=== PATIENT | female | born 1940 | race Native Hawaiian/Other Pacific Islander ===

== ENCOUNTER 2018-07-24 11:51 | Emergency (ER) | payer MEDICARE, MEDICAID ==
[2018-07-24 12:01] VITALS: BMI 21.7
[2018-07-24 13:48] LABS: BASO % 0.4 % (0.0-2.0); EOS # 0.1 K/uL (0.0-0.7); HEMOGLOBIN 11.6 g/dL (12.0-16.0); LYMPH # 1.6 K/uL (1.0-4.3); LYMPH % 21.2 % (20.0-40.0); MEAN CELL VOLUME 96.1 fl (81.0-99.0); MEAN CORPUSCULAR HEMOGLOBIN 30.5 pg (27.0-31.0); MEAN CORPUSCULAR HGB CONC 31.7 g/dL (33.0-37.0); MEAN PLATELET VOLUME 10.6 fl (7.2-11.7); MONO # 0.3 K/uL (0.0-0.8); MONO % 4.1 % (0.0-10.0); NEUT # 5.7 K/uL (1.8-7.0); NEUT % 73.3 % (50.0-75.0); RBC 3.81 Mil/uL (3.80-5.20); RED CELL DISTRIBUTION WIDTH 13.2 % (11.5-14.5); WHITE BLOOD COUNT 7.8 K/uL (4.8-10.8)
[2018-07-24 14:01] LABS: BLOOD UREA NITROGEN 12 mg/dl (7-17); CALCIUM 8.6 mg/dL (8.4-10.2); GFR NON-AFRICAN AMERICAN > 60
--- NOTE | 2018-07-24 14:23 | CT ---
Date of service: 07/24/2018 PROCEDURE: CT HEAD WITHOUT CONTRAST. HISTORY: headache COMPARISON: None available. TECHNIQUE: Axial computed tomography images were obtained through the head/brain without intravenous contrast. Radiation dose: Total exam DLP = 805.88 mGy-cm. This CT exam was performed using one or more of the following dose reduction techniques: Automated exposure control, adjustment of the mA and/or kV according to patient size, and/or use of iterative reconstruction technique. FINDINGS: HEMORRHAGE: No intracranial hemorrhage. BRAIN: The tyler-white matter differentiation is well preserved. There is no mass effect or definitive edema pattern appreciated including the cortex. There is proportional expansion of the ventriculosulcal and cisternal spaces however in a pattern most compatible with diffuse cerebral atrophy. No suspicious extra-axial fluid collection is identified in the midline brain anatomy appears grossly nonfocal as imaged. VENTRICLES: Unremarkable. No hydrocephalus. CALVARIUM: Unremarkable. PARANASAL SINUSES: Unremarkable as visualized. No significant inflammatory changes. MASTOID AIR CELLS: Unremarkable as visualized. No inflammatory changes. OTHER FINDINGS: None. IMPRESSION: Nonacute unenhanced CT of the Head. Limited diffuse cerebral atrophy is appreciated, normal for the patient's stated age.
--- NOTE | 2018-07-24 14:33 | ED PDOC ---
Syncope/Near Syncope/Dizziness Time Seen by Provider: 07/24/18 12:28 Chief Complaint (Nursing): Dizziness/Lightheaded Chief Complaint (Provider): Dizziness/Lightheaded History Per: Patient History/Exam Limitations: no limitations Onset/Duration Of Symptoms: Days (x1 week) Current Symptoms Are (Timing): Still Present Additional Complaint(s): Angie Sorensen is a 77 year old female with a past medical history of HTN and hypercholesterolemia, who presents to the emergency department complaining of chest and head pressure, onset x1 week. Patient states that at times she gets dizzy but it is not constant. She states her pain is a zero and is only complaining of pressure in the chest and head. Patient denies any syncope, weakness, numbness or leg swelling. She also noticed her blood pressure has been high recently despite her taking her medications. PMD: Sea Khan Past Medical History Reviewed: Historical Data, Nursing Documentation, Vital Signs Vital Signs: Last Vital Signs Temp 99 F 07/24/18 11:59 Pulse 65 07/24/18 11:59 Resp 18 07/24/18 11:59 BP 185/70 H 07/24/18 11:59 Pulse Ox 99 07/24/18 11:59 - Medical History PMH: HTN, Hypercholesterolemia - Surgical History Surgical History: No Surg Hx - Family History Family History: States: Unknown Family Hx - Allergies Allergies/Adverse Reactions: Allergies Allergy/AdvReac Type Severity Reaction Status Date / Time No Known Allergies Allergy Verified 07/24/18 12:06 Review of Systems ROS Statement: Except As Marked, All Systems Reviewed And Found Negative Cardiovascular: Positive for: Other (chest pressure and head pressure) Musculoskeletal: Negative for: Other (leg swelling) Neurological: Positive for: Dizziness, Other (head pressure; (-) syncope). Negative for: Weakness, Numbness Physical Exam - Reviewed Nursing Documentation Reviewed: Yes Vital Signs Reviewed: Yes - Physical Exam Appears: Positive for: Non-toxic, No Acute Distress Head Exam: Positive for: ATRAUMATIC, NORMOCEPHALIC Skin: Positive for: Normal Color, Warm, Dry Eye Exam: Positive for: Normal appearance, EOMI, PERRL Neck: Positive for: Normal, Painless ROM, Supple Cardiovascular/Chest: Positive for: Regular Rate, Rhythm. Negative for: Murmur Respiratory: Positive for: Normal Breath Sounds. Negative for: Respiratory Distress Gastrointestinal/Abdominal: Positive for: Normal Exam, Soft. Negative for: Tenderness Back: Positive for: Normal Inspection. Negative for: L CVA Tenderness, R CVA Tenderness, Vertebral Tenderness Extremity: Positive for: Normal ROM. Negative for: Pedal Edema, Deformity Neurologic/Psych: Positive for: Alert, Oriented (x3). Negative for: Motor/Sensory Deficits - Laboratory Results Result Diagrams: 07/24/18 13:40 07/24/18 13:40 - ECG O2 Sat by Pulse Oximetry: 99 (RA) Pulse Ox Interpretation: Normal - Progress Re-evaluation Time: 15:00 Condition: Re-examined, Improved Medical Decision Making Medical Decision Making: Initial Time: 12:45 Initial Impression: Headache, chest pain, HTN Differential diagnosis includes but not limited to uncontrolled HTN, less likely acute coronary syndrome and less likely presentation of CVA Plan: --EKG --Chest X-ray --ED urine dipstick --Head CT without contrast --BMP --Troponin I --CBC with differential 14:[address] FINDINGS: HEMORRHAGE: No intracranial hemorrhage. BRAIN: The tyler-white matter differentiation is well preserved. There is no mass effect or definitive edema pattern appreciated including the cortex. There is proportional expansion of the ventriculosulcal and cisternal spaces however in a pattern most compatible with diffuse cerebral atrophy. No suspicious extra-axial fluid collection is identified in the midline brain anatomy appears grossly nonfocal as imaged. VENTRICLES: Unremarkable. No hydrocephalus. CALVARIUM: Unremarkable. PARANASAL SINUSES: Unremarkable as visualized. No significant inflammatory changes. MASTOID AIR CELLS: Unremarkable as visualized. No inflammatory changes. OTHER FINDINGS: None. IMPRESSION: Nonacute unenhanced CT of the Head. Limited diffuse cerebral atrophy is a ppreciated, normal for the patient's stated age. Scribe Attestation: Documented by John Reyes, acting as a scribe for Raulito Cabrera MD. Provider Scribe Attestation: All medical record entries made by the Scribe were at my direction and personally dictated by me. I have reviewed the chart and agree that the record accurately reflects my personal performance of the history, physical exam, medical decision making, and the department course for this patient. I have also personally directed, reviewed, and agree with the discharge instructions and disposition. Disposition - Clinical Impression Clinical Impression: Dizziness, Headache, Hypertension - Patient ED Disposition Is Patient to be Admitted: No Doctor Will See Patient In The: Office Counseled Patient/Family Regarding: Studies Performed, Diagnosis, Need For Followup - Disposition Referrals: Sea Khan MD [Primary Care Provider] - Disposition: Routine/Home Disposition Time: 15:15 Condition: GOOD Additional Instructions: NAGIE SORENSEN, thank you for letting us take care of you today. Your provider was Raulito Cabrera MD and you were treated for DIZZINESS. The emergency medical care you received today was directed at your acute symptoms. If you were prescribed any medication, please fill it and take as directed. It may take several days for your symptoms to resolve. Return to the Emergency Department if your symptoms worsen, do not improve, or if you have any other problems. Please contact your doctor or call one of the physicians/clinics you have been referred to that are listed on the Patient Visit Information form that is included in your discharge packet. Bring any paperwork you were given at discharge with you along with any medications you are taking to your follow up visit. Our treatment cannot replace ongoing medical care by a primary care provider outside of the emergency department. Thank you for allowing the [facility] [employer] team to be part of your care today. If you had an X-Ray or CT scan: A Radiologist will review the ED reading if any change in treatment is needed we will contact you. If you had a blood, urine, or wound culture: It will take several days for the results, if any change in treatment is needed we will contact you. If you had an STI test: It will take 48 hours for the results. Please call after 1 week if you have not heard back. Instructions: High Blood Pressure in Adults
--- NOTE | 2018-07-24 14:49 | RAD ---
Date of service: 07/24/2018 HISTORY: dyspnea COMPARISON: No prior. FINDINGS: LUNGS: Volume loss right upper lobe with scarring. Hilar retraction identified. PLEURA: No significant pleural effusion identified, no pneumothorax apparent. CARDIOVASCULAR: Atherosclerotic calcifications identified primarily aortic arch. No radiographic findings to suggest acute or significant cardiovascular disease. OSSEOUS STRUCTURES: No significant abnormalities. VISUALIZED UPPER ABDOMEN: Normal. OTHER FINDINGS: None. IMPRESSION: Volume loss, scarring right upper lobe. Elevation right hemidiaphragm and right hilum suggests chronic process likely scarring.
--- NOTE | 2018-07-24 16:07 | CARD ---
APPROVED REPORT Date of service: 07/24/2018 EKG Measurement Heart [id number] <Conclusion> Normal sinus rhythm Normal ECG
[2018-07-25 00:36] VITALS: BP 132/74; PULSE 82; RESP 19; TEMP 98.6
[2018-07-25 21:10] VITALS: O2SAT 99
== END 2018-07-24 15:32 | disposition home or self-care (01) ==
LOC: SUPCPDRO 11:51 → H.ER 11:51
DX: R42 Dizziness and giddiness (principal); R51 Headache; I10 Essential (primary) hypertension

== ENCOUNTER 2018-12-01 21:21 | Observation (INO) | payer MEDICARE ==
[2018-12-01 21:22] VITALS: BMI 21.7
[2018-12-01 22:48] LABS: BASO % 0.4 % (0.0-2.0); EOS % 0.5 % (0.0-4.0); HEMOGLOBIN 11.2 g/dL (12.0-16.0); LYMPH # 2.1 K/uL (1.0-4.3); LYMPH % 21.5 % (20.0-40.0); MEAN CELL VOLUME 95.9 fl (81.0-99.0); MEAN CORPUSCULAR HEMOGLOBIN 32.7 pg (27.0-31.0); MEAN CORPUSCULAR HGB CONC 34.1 g/dL (33.0-37.0); MEAN PLATELET VOLUME 9.6 fl (7.2-11.7); MONO # 0.8 K/uL (0.0-0.8); MONO % 7.8 % (0.0-10.0); NEUT % 69.8 % (50.0-75.0); NRBC % 0.1 % (0.0-0.0); RBC 3.41 Mil/uL (3.80-5.20); RED CELL DISTRIBUTION WIDTH 12.4 % (11.5-14.5)
[2018-12-01 22:56] LABS: PROTHROMBIN TIME 11.5 Seconds (9.8-13.1)
[2018-12-01 22:58] LABS: BLOOD UREA NITROGEN 13 mg/dl (7-17); CALCIUM 8.8 mg/dL (8.4-10.2); GFR NON-AFRICAN AMERICAN > 60; PARTIAL THROMBOPLASTIN TIME 28.1 Seconds (25.6-37.1)
--- NOTE | 2018-12-01 23:25 | ED PDOC ---
HPI: Headache Time Seen by Provider: 12/01/18 21:35 Chief Complaint (Nursing): Headache History Per: Patient History/Exam Limitations: no limitations Onset/Duration Of Symptoms: Hrs Current Symptoms Are (Timing): Still Present Additional Complaint(s): 77 year old F with history of HTN, HLD presenting with headache. States that at 6PM she took her Micardis 80mg and Hydralazine 50mg at the same time and afterwards felt lightheaded but mostly felt a throbbing pressure like headache in the back of her head radiating into the neck, states that she attributed this to elevated blood pressure at home. Patient states that she took APAP with some relief, states she does not have dizziness or lightheadedness currently, nor does she have chest pain, shortness of breath, fevers, focal weakness. Daughter states that she has been in touch with Dr. Khan and thinks the medication needs to be adjusted. States she had similar symptoms last week and had a negative CT and negative bloodwork and is due for MRI on Tuesday. PMD: Dr. Khan/Kameron Past Medical History Reviewed: Historical Data, Nursing Documentation, Vital Signs Vital Signs: Last Vital Signs Temp 98.2 F 12/01/18 22:01 Pulse 64 12/01/18 22:01 Resp 18 12/01/18 22:01 BP 170/82 H 12/01/18 22:01 Pulse Ox 99 12/01/18 22:01 - Medical History PMH: HTN, Hypercholesterolemia - Family History Family History: States: Unknown Family Hx - Home Medications Home Medications: Ambulatory Orders Medication Instructions Recorded Aspirin [Ecotrin] 81 mg PO HS 11/20/18 Metoprolol Succinate XL [Toprol XL] 100 mg PO DAILY 11/20/18 Simvastatin [Zocor] 40 mg PO HS 11/20/18 Telmisartan [Micardis] 80 mg PO DAILY 11/20/18 hydrALAZINE [Apresoline] 50 mg PO Q8 #90 tab 11/21/18 - Allergies Allergies/Adverse Reactions: Allergies Allergy/AdvReac Type Severity Reaction Status Date / Time No Known Allergies Allergy Verified 07/24/18 12:06 Review of Systems ROS Statement: Except As Marked, All Systems Reviewed And Found Negative Neurological: Positive for: Headache. Negative for: Weakness, Numbness, Incoordination, Change in Speech Physical Exam - Reviewed Nursing Documentation Reviewed: Yes Vital Signs Reviewed: Yes - Physical Exam Appears: Positive for: Well, Non-toxic, No Acute Distress Head Exam: Positive for: ATRAUMATIC, NORMAL INSPECTION, NORMOCEPHALIC Skin: Positive for: Normal Color, Warm, DRY Eye Exam: Positive for: EOMI, Normal appearance, PERRL ENT: Positive for: Normal ENT Inspection Neck: Positive for: Normal, Painless ROM Cardiovascular/Chest: Positive for: Regular Rate, Rhythm Respiratory: Positive for: CNT, Normal Breath Sounds Gastrointestinal/Abdominal: Positive for: Normal Exam, Soft Back: Positive for: Normal Inspection Extremity: Positive for: Normal ROM Neurological/Psych: Positive for: Awake, Alert, Normal Tone, Symmetric/Intact Strength, Gait (Normal), 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 Negative for: Motor/Sensory Deficits - Laboratory Results Result Diagrams: 12/01/18 22:45 12/01/18 22:45 Lab Results: PT 11.5 Seconds (9.8-13.1) 12/01/18 22:45 INR 1.0 12/01/18 22:45 APTT 28.1 Seconds (25.6-37.1) 12/01/18 22:45 Troponin I < 0.0120 ng/mL (0.00-0.120) 12/01/18 22:45 - ECG O2 Sat by Pulse Oximetry: 99 Pulse Ox Interpretation: Normal Medical Decision Making Medical Decision Makin77 year old presenting with headache and HTN and headache --Patient well appearing, no distress, not concerned for SAH/meningitis/acute intracranial patholgy --Patient had symptoms like this last week and had negative workup at that time --Dr. Khan recommends increasing Hydralazine to 75mg --Will check labs, give NSAID and re-eval 0000 --Patient has hypochloremic hyponatremia on labs --Will hydrate with sodium chloride --Dr. Khan aware, will place in OBS MS Disposition - Clinical Impression Clinical Impression: Hyponatremia - Patient ED Disposition Is Patient to be Admitted: Yes Discussed With : Sea Khan - Disposition Disposition Time: 00:00 Condition: FAIR
[2018-12-01] MEDS ORDERED: Sodium Chloride 0.9% 1,000 ML IV STA (23:31)
--- NOTE | 2018-12-02 13:41 | CP.PCM.HP ---
History of Present Illness - History of Present Illness History of Present Illness: This is a 77 y/o female admitted for dizziness and headaches. Noted to have elevated BP and sodium of 123. Patient has a hx of HTn and hyperlipidemia and lately she has been noted to have fluctuations of BP. Her Bp has been so labile and at times had caused her dizziness and headaches. She had recent hospitalizations for elevated Bp and severe headaches. She has been on telmisartan and metoprolol and hydralazine and has been compl iant with her medications. Since her last hospitalization 2 weeks ago she claims to have very strict no salt on her diet. She started having vague dizziness and headaches hence was advised Er eval where she was noted to have hyponatremia. Review of her previous labs showed normal sodium all the time. Present on Admission - Present on Admission Any Indicators Present on Admission: No History of DVT/PE: No History of Uncontrolled Diabetes: No Urinary Catheter: No Decubitus Ulcer Present: No Review of Systems - Constitutional Constitutional: Headache - Neurological Neurological: Dizziness Past Patient History - Infectious Disease Hx of Infectious Diseases: None - Past Medical History & Family History Past Medical History?: Yes - Past Social History Smoking Status: Never Smoked - CARDIAC Hx Hypercholesterolemia: Yes Hx Hypertension: Yes - PULMONARY Hx Respiratory Disorders: No - NEUROLOGICAL Hx Neurological Disorder: No - HEENT Hx HEENT Problems: No - RENAL Hx Chronic Kidney Disease: No - ENDOCRINE/METABOLIC Hx Endocrine Disorders: No - HEMATOLOGICAL/ONCOLOGICAL Hx Blood Disorders: No - INTEGUMENTARY Hx Dermatological Problems: No - MUSCULOSKELETAL/RHEUMATOLOGICAL Hx Musculoskeletal Disorders: No Hx Falls: No - GASTROINTESTINAL Hx Gastrointestinal Disorders: No - GENITOURINARY/GYNECOLOGICAL Hx Genitourinary Disorders: No - PSYCHIATRIC Hx Psychophysiologic Disorder: No Hx Substance Use: No - SURGICAL HISTORY Hx Surgeries: No - ANESTHESIA Hx Anesthesia: No Hx Anesthesia Reactions: No Meds Allergies/Adverse Reactions: Allergies Allergy/AdvReac Type Severity Reaction Status Date / Time No Known Allergies Allergy Verified 07/24/18 12:06 Physical Exam - Head Exam Head Exam: NORMAL INSPECTION - Eye Exam Eye Exam: Normal appearance - Respiratory Exam Respiratory Exam: Clear to Auscultation Bilateral - Cardiovascular Exam Cardiovascular Exam: REGULAR RHYTHM - GI/Abdominal Exam GI & Abdominal Exam: Normal Bowel Sounds - Neurological Exam Neurological exam: CN II-XII Intact - Psychiatric Exam Psychiatric exam: Normal Mood Results - Vital Signs Recent Vital Signs: Last Vital Signs Temp 98.6 F 12/02/18 08:26 Pulse 64 12/02/18 08:26 Resp 20 12/02/18 08:26 BP 155/70 H 12/02/18 08:26 Pulse Ox 98 12/02/18 08:26 - Labs Result Diagrams: 12/01/18 22:45 12/03/18 05:30 Labs: Laboratory Results - last 24 hr 12/01/18 12/01/18 12/01/18 22:45 22:45 22:45 WBC 10.0 D RBC 3.41 L Hgb 11.2 L Hct 32.7 L MCV 95.9 MCH 32.7 H MCHC 34.1 RDW 12.4 Plt Count 177 MPV 9.6 Neut % (Auto) 69.8 Lymph % (Auto) 21.5 [place] % (Auto) 7.8 Eos % (Auto) 0.5 Baso % (Auto) 0.4 Neut # (Auto) 7.0 Lymph # (Auto) 2.1 [place] # (Auto) 0.8 Eos # (Auto) 0.0 Baso # (Auto) 0.0 PT 11.5 INR 1.0 APTT 28.1 Sodium 123 L Potassium 3.8 Chloride 89 L Carbon Dioxide 22 Anion Gap 16 BUN 13 Creatinine 0.5 L Est GFR ( Amer) > 60 Est GFR (Non-Af Amer) > 60 Random Glucose 126 H Calcium 8.8 Troponin I < 0.0120 Assessment & Plan (1) Hyponatremia Status: Acute (2) Hypertension Status: Acute - Assessment and Plan (Free Text) Plan: will give fluid restriction and liberal salt diet for now Nacl fluid recheck sodium in am add amlodipine monitor BP
[2018-12-02] MEDS ORDERED: Metoprolol Succinate 100 mg XL Tab PO SCH (15:00)
[2018-12-02] MEDS: Patient's Own Med (Telmisartan [Micardis] 80 mg) PO SCH (17:06)
[2018-12-02] MEDS: Metoprolol Succinate 100 mg XL Tab PO SCH (17:07)
--- NOTE | 2018-12-02 18:57 | CARD ---
APPROVED REPORT Date of service: 12/01/2018 EKG Measurement Heart [id number] <Conclusion> Normal sinus rhythm Normal ECG
[2018-12-03 06:56] LABS: ALB/GLOB RATIO 1.1 (1.0-2.1); ALBUMIN 3.1 g/dL (3.5-5.0); ALT/SGPT 29 U/L (9-52); AST/SGOT 23 U/L (14-36); BLOOD UREA NITROGEN 9 mg/dl (7-17); CALCIUM 8.4 mg/dL (8.4-10.2); GFR NON-AFRICAN AMERICAN > 60
[2018-12-03] MEDS: Metoprolol Succinate 100 mg XL Tab PO SCH (09:58)
[2018-12-03] MEDS: Patient's Own Med (Telmisartan [Micardis] 80 mg) PO SCH (12:25)
--- NOTE | 2018-12-03 22:55 | CP.PCM.PN ---
Subjective - Date & Time of Evaluation Date of Evaluation: 12/03/18 Time of Evaluation: 16:20 - Subjective Subjective: Patient has less dizziness and headaches Sodium is 126 Has no chest pain or SOB. Objective - Vital Signs/Intake and Output Vital Signs (last 24 hours): Temp Pulse Resp BP Pulse Ox 98.5 F 57 L 18 145/62 95 12/03/18 17:00 12/03/18 17:11 12/03/18 17:00 12/03/18 17:11 12/03/18 17:00 - Medications Medications: Current Medications Amlodipine Besylate (Norvasc) 5 mg PO DAILY [facility] Last Admin: 12/03/18 09:58 Dose: Not Given Aspirin (Ecotrin) 81 mg PO DAILY [facility] Last Admin: 12/03/18 09:57 Dose: 81 mg Home Med (Simvastatin [Zocor]) 40 mg PO HS [facility] Last Admin: 12/03/18 21:57 Dose: 40 mg Home Med (Telmisartan [Micardis]) 80 mg PO DAILY@1200 [facility] Last Admin: 12/03/18 12:25 Dose: 80 mg Hydralazine HCl (Apresoline) 50 mg PO Q8 [facility] Last Admin: 12/03/18 17:11 Dose: 50 mg Metoprolol Succinate (Toprol Xl) 100 mg PO DAILY [facility] Last Admin: 12/03/18 09:58 Dose: Not Given - Labs Labs: 12/01/18 22:45 12/03/18 05:30 PT 11.5 Seconds (9.8-13.1) 12/01/18 22:45 INR 1.0 12/01/18 22:45 APTT 28.1 Seconds (25.6-37.1) 12/01/18 22:45 - Head Exam Head Exam: NORMAL INSPECTION - Eye Exam Eye Exam: Normal appearance - ENT Exam ENT Exam: Mucous Membranes Moist - Respiratory Exam Respiratory Exam: Clear to Ausculation Bilateral - Cardiovascular Exam Cardiovascular Exam: REGULAR RHYTHM - GI/Abdominal Exam GI & Abdominal Exam: Normal Bowel Sounds - Neurological Exam Neurological Exam: Awake, Oriented x3 Assessment and Plan (1) Hyponatremia Status: Acute (2) Hypertension Status: Acute - Assessment and Plan (Free Text) Plan: Cont meds fluid restriction repeat sodium BMP in am amlodipine
[2018-12-04 06:23] LABS: BLOOD UREA NITROGEN 10 mg/dl (7-17); CALCIUM 8.7 mg/dL (8.4-10.2); GFR NON-AFRICAN AMERICAN > 60
[2018-12-04 08:19] VITALS: RESP 20; TEMP 98.1; O2SAT 98
[2018-12-04] MEDS: Metoprolol Succinate 100 mg XL Tab PO SCH (08:29)
[2018-12-04] MEDS: Patient's Own Med (Telmisartan [Micardis] 80 mg) PO SCH (12:35)
[2018-12-04 12:36] VITALS: BP 115/57; PULSE 57
== END 2018-12-04 15:44 | disposition home or self-care (01) ==
LOC: H.ER 21:21 → H.ERHOLD 12-02 00:02 → H.MEDSURG1 12-02 03:19
PROVIDERS: ADMIT Family Medicine; ATTEND Family Medicine
DX: E87.1 Hypo-osmolality and hyponatremia (principal); I10 Essential (primary) hypertension; E78.00 Pure hypercholesterolemia, unspecified; E78.5 Hyperlipidemia, unspecified; Z79.82 Long term (current) use of aspirin; E87.8 Other disorders of electrolyte and fluid balance, not elsewhere classified
CPT/HCPCS: 36415; 80048; 80053; 82948; 84484; 85025; 85610; 85730; 93005; 99285; G0378; J7030

== ENCOUNTER 2019-01-17 10:03 | Observation (INO) | payer MEDICARE ==
[2019-01-17 10:08] VITALS: BMI 22.4
[2019-01-17 11:03] LABS: BASO # 0.1 K/uL (0.0-0.2); BASO % 0.9 % (0.0-2.0); EOS % 0.2 % (0.0-4.0); HEMOGLOBIN 10.6 g/dL (12.0-16.0); LYMPH # 1.4 K/uL (1.0-4.3); LYMPH % 15.6 % (20.0-40.0); MEAN CELL VOLUME 96.7 fl (81.0-99.0); MEAN CORPUSCULAR HGB CONC 33.1 g/dL (33.0-37.0); MEAN PLATELET VOLUME 8.6 fl (7.2-11.7); MONO # 0.4 K/uL (0.0-0.8); MONO % 3.9 % (0.0-10.0); NEUT # 7.2 K/uL (1.8-7.0); NEUT % 79.4 % (50.0-75.0); RBC 3.32 Mil/uL (3.80-5.20); RED CELL DISTRIBUTION WIDTH 12.9 % (11.5-14.5); WHITE BLOOD COUNT 9.1 K/uL (4.8-10.8)
[2019-01-17 11:14] LABS: ALB/GLOB RATIO 1.4 (1.0-2.1); ALBUMIN 4.2 g/dL (3.5-5.0); ALT/SGPT 53 U/L (9-52); AST/SGOT 47 U/L (14-36); BLOOD UREA NITROGEN 12 mg/dl (7-17); CALCIUM 8.5 mg/dL (8.4-10.2); GFR NON-AFRICAN AMERICAN > 60
--- NOTE | 2019-01-17 11:36 | ED PDOC ---
Syncope/Near Syncope/Dizziness Time Seen by Provider: 01/17/19 10:20 Chief Complaint (Nursing): Dizziness/Lightheaded Chief Complaint (Provider): Dizziness/Lightheaded History Per: Patient History/Exam Limitations: no limitations Additional Complaint(s): 78 y/o female presents to the ED referral by PMD due to dizziness associated with nausea and vomiting. Patient was hospitalized in November for the same symptoms and was found to be hyponatremia. she states the dizziness was worse yesterday after starting new blood pressure medication. Froy reports symtpoms are worse when she moves her head from side to side. PMD requested MRI and SCT was done in november which was negative. PMD: none provided Past Medical History Reviewed: Historical Data, Nursing Documentation, Vital Signs Vital Signs: Last Vital Signs Temp 98.6 F 01/17/19 10:07 Pulse 67 01/17/19 10:07 Resp 18 01/17/19 10:07 BP 149/71 01/17/19 10:07 Pulse Ox 99 01/17/19 10:07 Primary Care Provider: Sea Khan - Medical History PMH: HTN, Hypercholesterolemia Denies: Chronic Kidney Disease - Family History Family History: States: Unknown Family Hx - Immunization History Hx Tetanus Toxoid Vaccination: No Hx Influenza Vaccination: Yes Hx Pneumococcal Vaccination: No - Home Medications Home Medications: Ambulatory Orders Medication Instructions Recorded Aspirin [Ecotrin] 81 mg PO HS 11/20/18 Metoprolol Succinate XL [Toprol XL] 100 mg PO DAILY 11/20/18 Simvastatin [Zocor] 40 mg PO HS 11/20/18 Telmisartan [Micardis] 80 mg PO DAILY 11/20/18 hydrALAZINE [Apresoline] 50 mg PO Q8 #90 tab 11/21/18 amLODIPine [Norvasc] 5 mg PO DAILY #30 tab 12/04/18 - Allergies Allergies/Adverse Reactions: Allergies Allergy/AdvReac Type Severity Reaction Status Date / Time No Known Allergies Allergy Verified 07/24/18 12:06 Review of Systems ROS Statement: Except As Marked, All Systems Reviewed And Found Negative Gastrointestinal: Positive for: Nausea, Vomiting Neurological: Positive for: Dizziness Physical Exam - Reviewed Nursing Documentation Reviewed: Yes Vital Signs Reviewed: Yes - Physical Exam Appears: Positive for: Well, Non-toxic, No Acute Distress Head Exam: Positive for: ATRAUMATIC, NORMAL INSPECTION, NORMOCEPHALIC Skin: Positive for: Normal Color, Warm, Dry Eye Exam: Positive for: EOMI, Normal appearance, PERRL ENT: Positive for: Normal ENT Inspection Neck: Positive for: Normal, Painless ROM, Supple Cardiovascular/Chest: Positive for: Regular Rate, Rhythm. Negative for: Murmur Respiratory: Positive for: Normal Breath Sounds. Negative for: Wheezing Gastrointestinal/Abdominal: Positive for: Normal Exam, Soft. Negative for: Tenderness Back: Positive for: Normal Inspection. Negative for: L CVA Tenderness, R CVA Tenderness, Vertebral Tenderness Extremity: Positive for: Normal ROM Neurological/Psych: Positive for: Awake, Alert, Normal Tone, Oriented (x3). Negative for: Motor/Sensory Deficits - Laboratory Results Result Diagrams: 01/17/19 10:42 01/17/19 10:50 Lab Results: Total Bilirubin 0.5 mg/dl (0.2-1.3) 01/17/19 10:50 AST 47 U/L (14-36) H D 01/17/19 10:50 ALT 53 U/L (9-52) H D 01/17/19 10:50 Alkaline Phosphatase 49 U/L (38-126) 01/17/19 10:50 Total Protein 7.3 G/DL (6.3-8.2) 01/17/19 10:50 Albumin 4.2 g/dL (3.5-5.0) 01/17/19 10:50 Globulin 3.1 gm/dL (2.2-3.9) 01/17/19 10:50 Albumin/Globulin Ratio 1.4 (1.0-2.1) 01/17/19 10:50 - ECG O2 Sat by Pulse Oximetry: 99 Medical Decision Making Medical Decision Making: Time:1038 Impression: Plan: -EKG -CMP -CBC -MRI -Antivert -Zofran inj Scribe Attestation: Documented by Kayley Oro, acting as a scribe for Valdo Chaudhari. Provider Scribe Attestation: All medical record entries made by the Scribe were at my direction and personally dictated by me. I have reviewed the chart and agree that the record accurately reflects my personal performance of the history, physical exam, medical decision making, and the department course for this patient. I have also personally directed, reviewed, and agree with the discharge instructions and disposition. Disposition - Clinical Impression Clinical Impression: Dizziness of unknown cause, Severe dizziness - Patient ED Disposition Is Patient to be Admitted: Yes - Disposition Disposition Time: 14:54 Condition: FAIR Forms: [employer] (Hungarian) - Pt Status Changed To: Hospital Disposition Of: Observation - POA Present On Arrival: None
--- NOTE | 2019-01-17 14:41 | MRI ---
Date of service: 01/17/2019 PROCEDURE: Magnetic Resonance Angiography Brain HISTORY: Dizziness COMPARISON: None available. TECHNIQUE: 3D time of flight MR angiography of the intracranial arteries was performed. Rotating maximum intensity projection images were generated. FINDINGS: INTERNAL CAROTID ARTERIES: Normal flow related signal. The skull base, petrous, cavernous and supraclinoid segments are bilaterally widely patient. ANTERIOR CEREBRAL ARTERIES: Normal flow related signal. A1 and A2 segments are widely patent. Smaller distal branches unremarkable, as visualized. MIDDLE CEREBRAL ARTERIES: Normal flow related signal. M1 and M2 segments are widely patent. Perisylvian branches grossly symmetric. POSTERIOR CIRCULATION: Basilar Artery: Normal flow related signal. Normal in caliber and widely patent. Distal Vertebral Arteries: Normal flow related signal. Widely patent. Posterior Cerebral Arteries: Normal flow related signal. Widely patent. Posterior Inferior Cerebellar Arteries: Normal flow related signal. Widely patent. ANEURYSM/ VASCULAR MALFORMATIONS: None. OTHER FINDINGS: None. IMPRESSION: Normal noncontrast MR angiography of the brain.
--- NOTE | 2019-01-17 14:47 | MRI ---
Date of service: 01/17/2019 PROCEDURE: MRI BRAIN WITHOUT CONTRAST HISTORY: Dizziness COMPARISON: CT head without contrast from 11/20/2018 TECHNIQUE: Multiplanar, multisequence MR images of the brain were obtained without intravenous contrast enhancement. FINDINGS: HEMORRHAGE: None DWI: No evidence of an acute or early subacute infarction. BRAIN PARENCHYMA: There are mild chronic microangiopathic changes. There is no mass, mass effect or abnormal extra-axial fluid collection. There is no territorial infarction. There is an empty sella, otherwise the midline sagittal structures are normal. VENTRICLES: There is mild age-related global parenchymal volume loss and proportionate enlargement of the ventricles and cortical sulci. CRANIUM: There is normal bone marrow signal pattern. 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 PARANASAL SINUSES/MASTOIDS: Predominantly clear. VASCULAR SYSTEM: There are normal signal voids in the larger intracranial arteries. OTHER FINDINGS: None. IMPRESSION: 1. No acute intracranial abnormality. 2. Mild chronic microangiopathic changes and mild age-related global parenchymal volume loss.
--- NOTE | 2019-01-17 15:54 | CARD ---
APPROVED REPORT Date of service: 01/17/2019 EKG Measurement Heart [id number] <Conclusion> Normal sinus rhythm Normal ECG
[2019-01-18] MEDS ORDERED: diltiaZEM 120 mg/24 Hours CD Cap PO SCH (09:00)
[2019-01-18] MEDS ORDERED: Metoprolol Succinate 100 mg XL Tab PO SCH (09:00)
--- NOTE | 2019-01-18 10:39 | CP.PCM.HP ---
History of Present Illness - History of Present Illness History of Present Illness: 78 yo female w/ PMHx of HTN and hyperlipidemia presented to ED with headaches associated with dizziness and vomiting. It has been noted to have fluctuations of BP. Her Bp has been so labile and at times had caused her dizziness and headaches. For which she has required admissions to the hospital. She had recent hospitalizations for elevated Bp and severe headaches. She has been on telmisartan and metoprolol and hydralazine and has been compliant with her medications. Patient recently switched from amlodipine to cardizem due to leg edema. Patient has been compliant with outpatient followup Patient seen and examined at bedside. No complaints offered at this time however BP has been low-normal without any BP meds when usually patient requires 3-5 medications to control bp. Denies chest pain, dizziness, headaches, palpitations . Meds: as per chart allergies: as per chart fam hx: non contributory Present on Admission - Present on Admission Any Indicators Present on Admission: No Review of Systems - Review of Systems All systems: reviewed and no additional remarkable complaints except (mentinoed above) Past Patient History - Infectious Disease Hx of Infectious Diseases: None - Past Medical History & Family History Past Medical History?: Yes - Past Social History Smoking Status: Never Smoked - CARDIAC Hx Hypercholesterolemia: Yes Hx Hypertension: Yes - PULMONARY Hx Respiratory Disorders: No - NEUROLOGICAL Hx Neurological Disorder: No - HEENT Hx HEENT Problems: No - RENAL Hx Chronic Kidney Disease: No - ENDOCRINE/METABOLIC Hx Endocrine Disorders: No - HEMATOLOGICAL/ONCOLOGICAL Hx Blood Disorders: No - INTEGUMENTARY Hx Dermatological Problems: No - MUSCULOSKELETAL/RHEUMATOLOGICAL Hx Musculoskeletal Disorders: No Hx Falls: No - GASTROINTESTINAL Hx Gastrointestinal Disorders: No - GENITOURINARY/GYNECOLOGICAL Hx Genitourinary Disorders: No - PSYCHIATRIC Hx Psychophysiologic Disorder: No Hx Substance Use: No - SURGICAL HISTORY Hx Surgeries: No Hx Tubal Ligation: Yes - ANESTHESIA Hx Anesthesia: No Hx Anesthesia Reactions: No Hx Malignant Hyperthermia: No Has any member of the family had a problem w/ anesthesia?: No Meds Allergies/Adverse Reactions: Allergies Allergy/AdvReac Type Severity Reaction Status Date / Time No Known Allergies Allergy Verified 07/24/18 12:06 Physical Exam - Constitutional Appears: Non-toxic, No Acute Distress - Head Exam Head Exam: NORMAL INSPECTION - Eye Exam Eye Exam: Normal appearance - Neck Exam Neck exam: Positive for: Normal Inspection - Respiratory Exam Respiratory Exam: NORMAL BREATHING PATTERN - Cardiovascular Exam Cardiovascular Exam: +S1, +S2 - GI/Abdominal Exam GI & Abdominal Exam: Normal Bowel Sounds, Soft - Extremities Exam Extremities exam: Positive for: normal inspection - Neurological Exam Neurological exam: Alert, Oriented x3 - Psychiatric Exam Psychiatric exam: Normal Affect, Normal Mood - Skin Skin Exam: Normal Color, Warm Results - Vital Signs Recent Vital Signs: Last Vital Signs Temp 98.4 F 01/18/19 07:56 Pulse 63 01/18/19 07:56 Resp 20 01/18/19 07:56 BP 143/64 01/18/19 07:56 Pulse Ox 96 01/18/19 07:56 - Labs Result Diagrams: 01/17/19 10:42 01/17/19 10:50 Labs: Laboratory Results - last 24 hr 01/17/19 01/17/19 10:42 10:50 WBC 9.1 RBC 3.32 L Hgb 10.6 L Hct 32.1 L MCV 96.7 MCH 32.0 H MCHC 33.1 RDW 12.9 Plt Count 215 MPV 8.6 Neut % (Auto) 79.4 H Lymph % (Auto) 15.6 L [place] % (Auto) 3.9 Eos % (Auto) 0.2 Baso % (Auto) 0.9 Neut # (Auto) 7.2 H Lymph # (Auto) 1.4 [place] # (Auto) 0.4 Eos # (Auto) 0.0 Baso # (Auto) 0.1 Sodium 132 Potassium 3.5 L Chloride 96 L Carbon Dioxide 26 Anion Gap 14 BUN 12 Creatinine 0.5 L Est GFR ( Amer) > 60 Est GFR (Non-Af Amer) > 60 Random Glucose 151 H Calcium 8.5 Total Bilirubin 0.5 AST 47 H D ALT 53 H D Alkaline Phosphatase 49 Total Protein 7.3 Albumin 4.2 Globulin 3.1 Albumin/Globulin Ratio 1.4 Assessment & Plan (1) Labile hypertension Status: Acute (2) Dizziness Status: Acute (3) Headache Status: Acute - Assessment and Plan (Free Text) Plan: available diagnostic data reviewed monitor labs monitor vitals adjust meds as dictated by BP monitor on telemetry Cardioloy consult rest of plan as ordered
--- NOTE | 2019-01-18 18:07 | CARD ---
APPROVED REPORT Date of service: 01/18/2019 EXAM: Two-dimensional and M-mode echocardiogram with Doppler and color Doppler. Other Information Quality : GoodRhythm : NSR INDICATION Dizziness and Vertigo 2D DIMENSIONS IVSd0.71 (0.7-1.1cm)LVDd4.79 (3.9-5.9cm) LVOT Diameter2.02 (1.8-2.4cm)PWd0.77 (0.7-1.1cm) IVSs1.24 (0.8-1.2cm)LVDs2.82 (2.5-4.0cm) FS (%) 41.0 %PWs1.11 (0.8-1.2cm) M-Mode DIMENSIONS Left Atrium (MM)2.75 (2.5-4.0cm)IVSd0.93 (0.7-1.1cm) Aortic Root2.83 (2.2-3.7cm)LVDd5.25 (4.0-5.6cm) Aortic Cusp Exc.1.65 (1.5-2.0cm)PWd0.90 (0.7-1.1cm) IVSs1.29 cmFS (%) 38 % LVDs3.24 (2.0-3.8cm)PWs0.98 cm Aortic Valve AoV Peak Lybcgppv467.2cm/sAoV VTI27.3cmAO Peak GR.6mmHg LVOT Peak Hwxdymfi65.7cm/sLVOT VTI19.44cmAO Mean GR.3mmHg AKHIL (VMAX)1.92oo6ZIC (VTI)1.72cm2 Mitral Valve MV E Ttirexwo68.4cm/sMV DECEL [id number] A Eonjxaio41.3cm/s MV VLV05yeN/A ratio1.2MVA (PHT)4.36cm2 TDI E/Lateral E'0.0E/Medial E'0.0 Tricuspid Valve TR Peak Thauphxc436rv/sRAP PEVLQLGJ12hjKkPX Peak Gr.29mmHg [id number] LEFT VENTRICLE The left ventricle is normal size. There is normal left ventricular wall thickness. The left ventricular systolic function is normal. The estimated ejection fraction is 60-65% No regional wall motion abnormalities noted.. The left ventricular diastolic function assessment is incomplete, likely has Grade 2 dysfunction. No left ventricle thrombus noted on this study. There is no ventricular septal defect visualized. There is no left ventricular aneurysm. There is no mass noted in the left ventricle. RIGHT VENTRICLE The right ventricle is normal size. There is normal right ventricular wall thickness. The right ventricular systolic function is normal. ATRIA The left atrium size is normal. The right atrium size is normal. The interatrial septum is intact with no evidence for an atrial septal defect. AORTIC VALVE The aortic valve is normal in structure. Mild aortic regurgitation is present. There is no aortic valvular stenosis. There is no aortic valvular vegetation. MITRAL VALVE The mitral valve is normal in structure. There is no evidence of mitral valve prolapse. There is no mitral valve stenosis. There is mild mitral valve regurgitation noted. TRICUSPID VALVE The tricuspid valve is normal in structure. There is mild to moderate tricuspid valve regurgitation noted. RVSP is calculated at 38 mm Hg. There is no tricuspid valve prolapse or vegetation. There is no tricuspid valve stenosis. PULMONIC VALVE The pulmonary valve is normal in structure. There is no pulmonic valvular regurgitation. There is no pulmonic valvular stenosis. GREAT VESSELS The aortic root is normal in size. The ascending aorta is normal in size. The pulmonary artery is normal. The IVC is normal in size and collapses >50% with inspiration. PERICARDIAL EFFUSION There is no pericardial effusion. There is no pleural effusion. <Conclusion> The estimated ejection fraction is 60-65% The left ventricular diastolic function assessment is incomplete, likely has Grade 2 dysfunction. The left atrium size is normal. Mild aortic regurgitation is present. There is mild mitral valve regurgitation noted. There is mild to moderate tricuspid valve regurgitation noted. RVSP is calculated at 38 mm Hg.
[2019-01-19 05:21] VITALS: O2SAT 98
[2019-01-19 10:16] LABS: MEAN CELL VOLUME 96.2 fl (81.0-99.0); MEAN CORPUSCULAR HGB CONC 33.3 g/dL (33.0-37.0); RBC 3.44 Mil/uL (3.80-5.20); RED CELL DISTRIBUTION WIDTH 12.9 % (11.5-14.5); WHITE BLOOD COUNT 7.2 K/uL (4.8-10.8)
[2019-01-19 11:24] LABS: ALB/GLOB RATIO 1.3 (1.0-2.1); ALT/SGPT 49 U/L (9-52); AST/SGOT 37 U/L (14-36); BLOOD UREA NITROGEN 16 mg/dl (7-17); CALCIUM 8.6 mg/dL (8.4-10.2); GFR NON-AFRICAN AMERICAN > 60
[2019-01-19 16:38] VITALS: BP 136/71; PULSE 66; RESP 18; TEMP 98.5
--- NOTE | 2019-01-19 17:05 | CP.PCM.CON ---
History of Present Illness - History of Present Illness History of Present Illness: I was asked to evaluate patient by Dr Melo. Patient seen 01/19/19 1700 Patient is a 78 year old female iwth HTN, hypercholesterolemia who presents with dizziness. By report blood pressure has been difficult to control, and the p atient was recently started on cardizem. She developed dizziness and near syncope. The patient presented to [facility] for further management. Review of Systems - Constitutional Constitutional: absent: As Per HPI, Anorexia, Chills, Daytime Sleepiness, Excessive Sweating, Fatigue, Fever, Frequent Falls, Headache, Increased Appetite, Lethargy, Malaise, Night Sweats, Snoring, Sleep Apnea, Weight Gain, Weight Loss, Weakness, Other - EENT Eyes: absent: As Per HPI, Blind Spots, Blurred Vision, Change in Vision, Decreased Night Vision, Diplopia, Discharge, Dry Eye, Exophthalmos, Floaters, Irritation, Itchy Eyes, Loss of Peripheral Vision, Pain, Photophobia, Requires Corrective Lenses, Sees Flashes, Spots in Vision, Tunnel Vision, Other Visual Disturbances, Loss of Vision, Other Ears: absent: As Per HPI, Decreased Hearing, Ear Discharge, Ear Pain, Tinnitus, Abnormal Hearing, Disequilibrium, Dizziness, Other Nose/Mouth/Throat: absent: As Per HPI, Epistaxis, Nasal Congestion, Nasal Discharge, Nasal Obstruction, Nasal Trauma, Nose Pain, Post Nasal Drip, Sinus Pain, Sinus Pressure, Bleeding Gums, Change in Voice, Dental Pain, Dry Mouth, Dysphagia, Halitosis, Hoarsness, Lip Swelling, Mouth Lesions, Mouth Pain, Odynophagia, Sore Throat, Throat Swelling, Tongue Swelling, Facial Pain, Neck Pain, Neck Mass, Other - Cardiovascular Cardiovascular: absent: As Per HPI, Acrocyanosis, Chest Pain, Chest Pain at Rest, Chest Pain with Activity, Claudication, Diaphoresis, Dyspnea, Dyspnea on Exertion, Edema, Irregular Heart Rhythm, Pain Radiating to Arm/Neck/Jaw, Leg Edema, Leg Ulcers, Lightheadedness, Orthopnea, Palpitations, Paroxysmal Nocturnal Dyspnea, Pedal Edema, Radiating Pain, Rapid Heart Rate, Slow Heart Rate, Syncope, Other - Respiratory Respiratory: absent: As Per HPI, Cough, Dyspnea, Hemoptysis, Dyspnea on Exertion, Wheezing, Snoring, Stridor, Pain on Inspiration, Chest Congestion, Excessive Mucous Production, Change in Mucous Color, Pain with Coughing, Other - Gastrointestinal Gastrointestinal: absent: As Per HPI, Abdominal Pain, Belching, Bloating, Change in Bowel Habits, Change in Stool Character, Coffee Ground Emesis, Constipation, Cramping, Diarrhea, Dyspepsia, Dysphagia, Early Satiety, Excessive Flatus, Fecal Incontinence, Heartburn, Hematemesis, Hematochezia, Loose Stools, Melena, Nausea, Odynophagia, Temesmus, Vomiting, Other - Genitourinary Genitourinary: absent: As Per HPI, Change in Urinary Stream, Difficulty Urinating, Dysuria, Flank Pain, Hematuria, Pyuria, Nocturia, Urinary Incontinence, Urinary Frequency, Urinary Hesitance, Urinary Urgency, Voiding Freq/Small Amts, Freq UTI, Hx Renal/Bladder Calculi, Hx /Renal Surgery, Bladder Distension, Other - Musculoskeletal Musculoskeletal: absent: As Per HPI, Abnormal Gait, Arthralgias, Atrophy, Back Pain, Deformity, Joint Swelling, Limited Range of Motion, Loss of Height, Muscle Cramps, Muscle Weakness, Myalgias, Neck Pain, Numbness, Radiating Pain into Limb, Stiffness, Tingling, Other - Integumentary Integumentary: absent: As Per HPI, Acne, Alopecia, Bleeding Lesions, Change in Hair, Change in Nails, Change in Pigmentation, Changing Lesions, Dry Skin, Erythema, Furuncle, Hirsutism, Lesions, New Lesions, Non-Healing Lesions, Photosensitivity, Pruritus, Rash, Skin Pain, Skin Ulcer, Sores, Striae, Swelling, Unusual Bruising, Wounds, Jaundice, Other - Neurological Neurological: absent: As Per HPI, Abnormal Gait, Abnormal Hearing, Abnormal Movements, Abnormal Speech, Behavioral Changes, Burning Sensations, Confusion, Convulsions, Disequilibrium, Dizziness, Numbness, Focal Weakness, Frequent Falls, Headaches, Lack of Coordination, Loss of Vision, Memory Loss, Paresthesias, Radicular Pain, Restless Legs, Sensory Deficit, Syncope, Tingling, Tremor, Vertigo, Weakness, Other Visual Disturbances, Other - Psychiatric Psychiatric: absent: As Per HPI, Abnormal Sleep Pattern, Anhedonia, Anxiety, Auditory Hallucinations, Behavioral Changes, Change in Appetite, Change in Libido, Confusion, Depression, Difficulty Concentrating, Hallucinations, Homicidal Ideation, Hopelessness, Irritability, Memory Loss, Mood Swings, Panic Attacks, Paranoia, Suicidal Ideation, Visual Hallucinations, Tactile Hallucinations, Other - Endocrine Endocrine: absent: As Per HPI, Change in Body Appearance, Change in Libido, Cold Intolorance, Deepening of Voice, Excessive Sweating, Fatigue, Flushing, Heat Intolorance, Increase in Ring/Shoe/Hat Size, Palpitations, Polydipsia, Polyphagia, Polyuria, Other - Hematologic/Lymphatic Hematologic: absent: As Per HPI, Easy Bleeding, Easy Bruising, Lymphadenopathy, Other Past Patient History - Infectious Disease Hx of Infectious Diseases: None - Past Medical History & Family History Past Medical History?: Yes - Past Social History Smoking Status: Never Smoked - CARDIAC Hx Hypercholesterolemia: Yes Hx Hypertension: Yes - PULMONARY Hx Respiratory Disorders: No - NEUROLOGICAL Hx Neurological Disorder: No - HEENT Hx HEENT Problems: No - RENAL Hx Chronic Kidney Disease: No - ENDOCRINE/METABOLIC Hx Endocrine Disorders: No - HEMATOLOGICAL/ONCOLOGICAL Hx Blood Disorders: No - INTEGUMENTARY Hx Dermatological Problems: No - MUSCULOSKELETAL/RHEUMATOLOGICAL Hx Musculoskeletal Disorders: No Hx Falls: No - GASTROINTESTINAL Hx Gastrointestinal Disorders: No - GENITOURINARY/GYNECOLOGICAL Hx Genitourinary Disorders: No - PSYCHIATRIC Hx Psychophysiologic Disorder: No Hx Substance Use: No - SURGICAL HISTORY Hx Surgeries: No Hx Tubal Ligation: Yes - ANESTHESIA Hx Anesthesia: No Hx Anesthesia Reactions: No Hx Malignant Hyperthermia: No Has any member of the family had a problem w/ anesthesia?: No Meds Allergies/Adverse Reactions: Allergies Allergy/AdvReac Type Severity Reaction Status Date / Time No Known Allergies Allergy Verified 07/24/18 12:06 - Medications Medications: Current Medications Aspirin (Ecotrin) 81 mg PO DAILY [facility] Last Admin: 01/19/19 09:13 Dose: 81 mg Atorvastatin Calcium (Lipitor) 20 mg PO HS [facility] Last Admin: 01/18/19 21:34 Dose: 20 mg Diltiazem HCl (Cardizem Cd) 120 mg PO DAILY [facility] Hydralazine HCl (Apresoline) 50 mg PO Q8 [facility] Losartan Potassium (Cozaar) 100 mg PO DAILY [facility] Meclizine HCl (Antivert) 25 mg PO BID PRN PRN Reason: Dizziness Metoprolol Succinate (Toprol Xl) 100 mg PO DAILY [facility] Ondansetron HCl (Zofran Inj) 4 mg IVP Q4 PRN PRN Reason: Nausea/Vomiting Physical Exam - Constitutional Appears: Non-toxic - Head Exam Head Exam: NORMAL INSPECTION - Eye Exam Eye Exam: Normal appearance - ENT Exam ENT Exam: Mucous Membranes Moist - Neck Exam Neck exam: Positive for: Full Rom - Respiratory Exam Respiratory Exam: NORMAL BREATHING PATTERN - Cardiovascular Exam Cardiovascular Exam: REGULAR RHYTHM - GI/Abdominal Exam GI & Abdominal Exam: Normal Bowel Sounds - Rectal Exam Rectal Exam: Deferred - Extremities Exam Extremities exam: Negative for: pedal edema - Back Exam Back exam: NORMAL INSPECTION - Neurological Exam Neurological exam: Alert, Oriented x3 - Psychiatric Exam Psychiatric exam: Normal Affect - Skin Skin Exam: Normal Color Results - Vital Signs Recent Vital Signs: Last Vital Signs Temp 98.5 F 01/19/19 16:37 Pulse 66 01/19/19 16:37 Resp 18 01/19/19 16:37 BP 136/71 01/19/19 16:37 Pulse Ox 98 01/19/19 16:37 - Labs Result Diagrams: 01/19/19 09:58 01/19/19 09:58 Labs: Laboratory Results - last 24 hr 01/19/19 01/19/19 09:58 09:58 WBC 7.2 RBC 3.44 L Hgb 11.0 L Hct 33.1 L MCV 96.2 MCH 32.0 H MCHC 33.3 RDW 12.9 Plt Count 212 Sodium 139 Potassium 3.6 Chloride 101 Carbon Dioxide 29 Anion Gap 13 BUN 16 Creatinine 0.6 L Est GFR ( Amer) > 60 Est GFR (Non-Af Amer) > 60 Random Glucose 146 H Calcium 8.6 Phosphorus 3.8 Magnesium 2.1 Total Bilirubin 0.8 AST 37 H D ALT 49 Alkaline Phosphatase 42 Total Protein 7.0 Albumin 4.0 Globulin 3.0 Albumin/Globulin Ratio 1.3 - EKG Data EKG Interpreted by: Myself EKG shows normal: Sinus rhythm Assessment & Plan (1) Dizziness Assessment and Plan: patient symptoms are likely due to blood pressure medications. Echo reviewed, normal LV function, normal valvular function. Status: Acute (2) Hypertension Assessment and Plan: blood pressure controlled off medications. recommend reevaluate as outpatient. Patient is stable for discharge. Status: Acute
== END 2019-01-19 18:25 | disposition home or self-care (01) ==
LOC: H.ER 10:03 → H.ERHOLD 14:53 → H.TEL 17:14
PROVIDERS: ADMIT Family Medicine; ATTEND Family Medicine
DX: R55 Syncope and collapse (principal); R42 Dizziness and giddiness; I10 Essential (primary) hypertension; E78.00 Pure hypercholesterolemia, unspecified; E78.5 Hyperlipidemia, unspecified; E87.1 Hypo-osmolality and hyponatremia; Z79.82 Long term (current) use of aspirin; Z79.899 Other long term (current) drug therapy; R11.2 Nausea with vomiting, unspecified; R51 Headache
CPT/HCPCS: 36415; 70544; 70551; 80053; 83735; 84100; 85025; 85027; 93005; 93306; 96374; 99285; G0378; J2405